=== PATIENT | female | born 2000 | race Two or more races ===

== ENCOUNTER 2022-09-14 17:07 | Inpatient (IN) | payer OTHER ==
[~2022-09-14] VITALS: Ht 172.7 cm; Wt 108.4 kg
--- NOTE | 2022-09-14 17:44 | NUR ---
PTE ALERTA Y ORIENTADA X3 ES REFERIDA POR DR. RADU BOSS AMINAH POR TENER LA HEMOGLOBINA EN 6. EN ADDICION PTE REFIERE TENER DOLOR DE PECHO Y MAREOS.
--- NOTE | 2022-09-14 18:40 | NUR ---
SE REALIZA CONNIE DE MUESTRAS VIKAS ORDEN MEDICA Y BAJO MEDIDAS ASEPTICAS. SE REALIZA VENOPUNCION EN RA #20 PATENETE BAJANDO IV FLUIDS. PTE PENDIENTE A RESULTADOS DE LAB.
--- NOTE | 2022-09-14 19:51 | NUR ---
SE LLAMA A [facility] Y SE NOTIFICA A MRS. BAUZO TUBOS PILOTOS PARA 3 UNIDADES DE PRBC COMPLETAS PARA TRANSFUNDIR. SE LLEVAN TUBOS PILOTOS A LABORATORIO.
--- NOTE | 2022-09-15 07:24 | NUR ---
SE RECIBE PTE FEMENINA DE 22YRS ALERTA CONCIENTE Y TRANQUILA EN CAMA CON BARABDA ELEVADA. PTE SE OBSERVA CON .9NSS A 120 ML Y BAJANDO LA 2DA UNIDAD DE PRBNS
--- NOTE | 2022-09-15 10:00 | NUR ---
PTE TOLERA TRANSFUCION Y SE LE CONNIE S/V LA CUAL SE MANTIENE ESTABLES.
== END 2022-09-16 13:24 | disposition home or self-care (01) | DRG 812 ==
LOC: ER 17:07 → MEDI 09-15 14:56
PROVIDERS: ADMIT Internal Medicine; ATTEND Internal Medicine
PROC: 30233N1 Transfusion of Nonautologous Red Blood Cells into Peripheral Vein, Percutaneous Approach (ICD-10-PCS; principal; 2022-09-15)
PROC: BW4GZZZ Ultrasonography of Pelvic Region (ICD-10-PCS; 2022-09-15)
DX: D50.0 Iron deficiency anemia secondary to blood loss (chronic) (principal); Z20.822 Contact with and (suspected) exposure to COVID-19; N93.8 Other specified abnormal uterine and vaginal bleeding